=== PATIENT | male | born 1940 | race Caucasian/White ===

== ENCOUNTER 2023-03-14 10:00 | Day surgery (SDC) | payer MEDICARE, OTHER ==
[2023-03-14] VITALS (20 sets, daily range): BP systolic 95–128; BP diastolic 53–91; PULSE 47–84; RESP 12–15; TEMP 98.2; O2SAT 92–100
[~2023-03-14] VITALS: Ht 172.7 cm; Wt 109.4 kg
[~2023-03-14 10:00] MED LIST: APIX5TAB3 PO; ASPI-611 PO; EMPA10TA PO; INSU100V9 SQ; LISI20TA28 PO; METF-438 PO; METO50TA16 PO; naloxone 2mg/2ml inj ONE; sod chloride 0.9% 10ml flush syringe IV ONE
[2023-03-14] MEDS ORDERED: MIDAZolam 1mg/ml 10ml vial IV ONE (10:20)
[2023-03-14] MEDS ORDERED: fentaNYL/PF 50MCG/1 ML 2ML syringe IV ONE (10:20)
[2023-03-14] MEDS ORDERED: METO25TA6 PO (10:24)
[2023-03-14] MEDS ORDERED: AMIO200T27 PO (10:24)
[2023-03-14 10:38] LABS: BASOPHILS # (AUTO) 0.1 X10'3 (0-0.2); EOSINOPHILS # (AUTO) 0.1 X10'3 (0-0.9); EOSINOPHILS % (AUTO) 2.3 % (0-6); HEMATOCRIT 47.2 % (42.0-52.0); HEMOGLOBIN 15.5 g/dl (14.0-17.9); LYMPHOCYTES # (AUTO) 0.9 X10'3 (1.1-4.8); LYMPHOCYTES % (AUTO) 16.6 % (21-51); MEAN CORPUSCULAR HEMOGLOBIN 30.8 PG (27.0-31.0); MEAN CORPUSCULAR HGB CONC 32.9 g/dL (33.0-36.5); MEAN CORPUSCULAR VOLUME 93.8 FL (78-98); MEAN PLATELET VOLUME 8.5 FL (7.4-10.4); MONOCYTES # (AUTO) 0.6 X10'3 (0-0.9); MONOCYTES % (AUTO) 11.1 % (2-12); NEUTROPHILS # (AUTO) 3.9 X10'3 (1.8-7.7); PLATELET COUNT 171 X10'3 (140-440); RED BLOOD COUNT 5.03 X10'6 (4.70-6.10); RED CELL DISTRIBUTION WIDTH 16.2 % (11.5-14.5); WHITE BLOOD COUNT 5.7 X10'3 (4.5-11.0)
[2023-03-14 10:45] LABS: ALBUMIN 3.8 G/DL (3.4-5.0); ANION GAP 11 (8-16); BLOOD UREA NITROGEN 33 MG/DL (7-18); BUN/CREATININE RATIO 17.7 (10.0-20.0); CALCIUM 10.3 MG/DL (8.5-10.1); CHLORIDE 104 MMOL/L (99-107); CREATININE 1.86 MG/DL (0.60-1.10); GLUCOSE 144 MG/DL (70-104); POTASSIUM 5.2 MMOL/L (3.5-5.1); SODIUM 140 MMOL/L (135-145); TOTAL CARBON DIOXIDE 25.2 MMOL/L (24-32); eCRCL 31 ML/MIN; eGFR 35 ML/MIN
[2023-03-14 10:48] LABS: INR 1.1 INR; PROTHROMBIN TIME 11.9 SECONDS (9.0-12.0)
[2023-03-14] MEDS ORDERED: flumazenil 0.1 mg/ml inj. IV ONE (12:44)
[2023-03-14] MEDS ORDERED: naloxone 0.4 mg/ml inj ONE (12:49)
[2023-03-14] MEDS ORDERED: FLU VACC QS2023-24(6MOS UP)/PF 60 MCG/0.5 ML SYRINGE IM ONE (17:00)
== END 2023-03-14 15:15 | disposition home or self-care (01) ==
LOC: SSTAY O 10:00
PROVIDERS: ATTEND Student in an Organized Health Care Education/Training Program
DX: I48.91 Unspecified atrial fibrillation (principal); I44.4 Left anterior fascicular block; I51.7 Cardiomegaly; I48.92 Unspecified atrial flutter; I42.9 Cardiomyopathy, unspecified; Z79.82 Long term (current) use of aspirin; Z79.84 Long term (current) use of oral hypoglycemic drugs; Z79.899 Other long term (current) drug therapy
CPT/HCPCS: 36415; 80048; 82948; 85025; 85610; 90686; 92960; 93005; G0008; J2250; J2310; J3010; J3490; J7030